=== PATIENT | female | born 2000 | race Caucasian/White ===

== ENCOUNTER 2020-08-29 08:42 | Day surgery (SDC) | payer BC ==
--- OUTSIDE RECORDS SUMMARY | 2020-08-29 08:52 | XMS REPORT | Continuity of Care Document ---
:2000 Author Organization [facility] t Address [address] [place] [address] Care Team Providers Name Role Phone Unavailable Unavailable Unavailable Problems This patient has no known problems. Allergies, Adverse Reactions, Alerts This patient has no known allergies or adverse reactions. Medications Ordered Filled Start Stop Current Ordering Indication Dosage Frequency Signature Comments Components Source Medication Medication Date Date Medication? Clinician (SIG) Name Name Lamictal Lamictal Yes Pardeep [address] [facility] Procedures This patient has no known procedures. Encounters Start End Encounter Admission Attending Care Care Encounter Source Date/Time Date/Time Type Type Clinicians Facility Department ID 2020-08-28 2020-08-[address] [facility] [id number] [facility] 2020-08-11 2020-08-[address] [facility] [id number] [facility] 2020-06-25 2020-06-25 [facility] [id number] [facility] 09:04:00 09:04:00 [employer] [facility] l Medicine Outpat[facility] Clinics 2020-02-18 2020-02-18 [facility] [id number] [facility] 2019-04-17 2019-04-17 [facility] [id number] [facility] 14:09:00 14:09:00 [place] [employer] [employer] [employer] [facility] [employer] [facility] Medicine Outpat[facility] Clinics 2019-02-07 2019-02-07 [facility] [id number] [facility] 11:30:00 11:30:00 [place] [employer] [facility] Medicine Outpati ent Clinics 2018-12-27 2018-12-27 [facility] [id number] [facility] 11[facility]30:00 11:30:00 [place] [employer] [employer] [facility] [employer] [facility] Medicine Outpat[facility] Clinics 2018-10-11 2018-10-11 [facility] [id number] [address] 09:45:00 09:45:00 [place] [employer] [facility] [employer] [facility] Medicine Outpati ent Clinics 2018-10-02 2018-10-02 [facility] [id number] [address] 10:45:00 10:45:00 [place] [employer] [employer] [facility] [employer] [facility] Medicine Outpati ent Clinics 2018-07-27 2018-07-27 [facility] [id number] [facility] 13:30:00 13:30:00 [employer] [facility] [employer] [facility] Medicine Outpati ent Clinics 2018-07-24 2018-07-24 [facility] [id number] [facility] 15:15:00 15:15:00 [employer] [facility] [employer] [facility] Medicine Outpati ent Clinics 2018-04-05 2018-04-05 [facility] [id number] 10:30:00 10:30:00 [employer] [facility] [employer] [facility] Medicine Outpati ent Clinics Results This patient has no known results.
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
[2020-08-29] MEDS ORDERED: propofoL 200 MG/20 ML VIAL IV ONE (09:04)
[2020-08-29] MEDS ORDERED: LIDOCAINE 2% MPF 5 ML VIAL ONE (09:04)
[2020-08-29] MEDS ORDERED: ROCURONIUM 50 MG/5 ML VIAL IV ONE (09:04)
[2020-08-29] MEDS ORDERED: MIDAZOLAM HCL 2 MG/2 ML INJ ONE (09:04)
[2020-08-29] MEDS ORDERED: dexAMETHasone 4 MG/ML VIAL ONE (09:04)
[2020-08-29] MEDS ORDERED: FENTANYL CITR 100 MCG/2 ML ONE (09:04)
[2020-08-29] MEDS ORDERED: ONDANSETRON 4 MG/2 ML VIAL ONE ×2 (09:04→11:53)
[2020-08-29] MEDS ORDERED: Ringers Lactate 1,000 ML IV ONE (09:13)
[2020-08-29 09:14] LABS: Specific Gravity 1.015 (1.005-1.030)
[2020-08-29] MEDS: BUPIVACA 0.5%/EPI 0.0005%/PF 30 ML VIAL ONE ×3 (10:27→11:23)
[2020-08-29] MEDS ORDERED: MORPHINE 10 MG/ML VIAL ONE (11:28)
--- NOTE | 2020-08-29 11:29 | P.OP ---
Tape Control Skin Or Spar Mill Operator: None Pre-Op Diagnosis: Chronic tonsillitis, Other (tonsil hypertrophy) Post-Op Diagnosis: Chronic tonsillitis, Other (tonsil hypertrophy) Procedure: Tonsillectomy Anesthesia: Other (GA via ETT) Fluids/ Blood products: Other (crystalloid 500ml) Estimated blood loss: Other (5ml) Specimen: Other (bilateral tonsils) Complications: None Indication: Patient persistent issues in spite of good medical management. Details of Operation: The patient was brought to the operating room and placed under general anesthesia via endotracheal tube. The head of bed was turned 90 degrees. A Shoulder roll was placed and the neck extended. A head drape was applied. The McIvor mouth gag was placed and suspended from the Jarvis stand. The oxygen concentrate was confirmed with the single stroke preformer and was less than forty percent. Weight-based dexamethasone was administered by the single stroke preformer. The soft palate was palpated and there was no submucous cleft. A red rubber catheter was placed in the nose and secured to retract the soft palate. The tonsils were noted to be large and chronically inflammed. The left tonsil was grasped with a straight Allis clamp. The bovie electocautery was used to incision the mucosa over the anterior pillar and identify the tonsillar capsule. The tonsil was dissected using cautery and blunt dissection until free from soft tissue attachments. A vessel in the mid tonsillar fossa was clamped and ligated with a 0 Vycril endoloop A tonsil ball was placed to aid hemostasis. The right tonsil was removed in a similar manner. No ligation was required on the right side The laryngeal mirror was used to visualize the nasopharynx. The adenoid size was minimal. The adenoids were not removed. Hemostasis was achieved using packing and cautery as needed. Blood loss was minimal. All packing was removed. The tonsillar fossae were injected with 0.5% Marcaine with epinephrine. A total of 3 mL was used. A Salum sump orogastric tube was used to decompress the stomach. The red rubber catheter was removed and used to suction the nasopharynx and nasal cavity. The mouth gag was removed; there was no evidence of injury to the lips, teeth or tongue. The mandible was mobile. Disposition: The patient was then awakened from anesthesia and taken to the recovery room in stable condition.
[2020-08-29] MEDS ORDERED: MORPHINE 4 MG/ML SYR ONE (11:53)
[2020-08-29] MEDS ORDERED: HYDROCOD 2.5mg-ACETAMIN 108mg/5mL Soln ONE (12:38)
[2020-08-29 13:07] VITALS: BP 141/86; TEMP 96.8; O2SAT 98
== END 2020-08-29 13:00 | disposition home or self-care (01) ==
LOC: OR 08:42
PROVIDERS: ATTEND Otolaryngology
PROC: 0CTPXZZ Resection of Tonsils, External Approach (ICD-10-PCS; principal; 2020-08-29 11:15)
DX: J35.01 Chronic tonsillitis (principal); E66.9 Obesity, unspecified; Z68.42 Body mass index [BMI] 45.0-49.9, adult; Z83.3 Family history of diabetes mellitus
CPT/HCPCS: 81025; 88304; 42826; J2704; J1100; J2250; J3010; J7120; J2405 ×2; 88305